=== PATIENT | female | born 1995 | race Caucasian/White ===

== ENCOUNTER 2020-05-17 09:58 | Emergency (ER) | payer OTHER ==
[~2020-05-17] VITALS: Ht 172.7 cm; Wt 73.9 kg
== END 2020-05-17 14:12 | disposition home or self-care (01) ==
LOC: ER 09:58
DX: O26.891 Other specified pregnancy related conditions, first trimester (principal); K52.89 Other specified noninfective gastroenteritis and colitis; O21.0 Mild hyperemesis gravidarum; Z3A.01 Less than 8 weeks gestation of pregnancy

== ENCOUNTER 2020-05-25 17:52 | Emergency (ER) | payer OTHER ==
[~2020-05-25] VITALS: Ht 172.7 cm; Wt 74.4 kg
[2020-05-25] MEDS ORDERED: PRENA1 TRUE CO1 EACH (18:25)
== END 2020-05-25 22:32 | disposition home or self-care (01) ==
LOC: ER 17:52
DX: O26.891 Other specified pregnancy related conditions, first trimester (principal); R10.2 Pelvic and perineal pain